=== PATIENT | male | born 1980 | race African-American/Black ===

== ENCOUNTER 2022-10-10 17:58 | Emergency (ER) | payer MEDICAID, OTHER ==
[2022-10-10 18:33] LABS: GLUCOSE, URINE (UA) NEGATIVE (NEGATIVE); KETONES,URINE (UA) 40 mg/dL (NEGATIVE); LEUKOCYTE ESTERASE, URINE NEGATIVE (NEGATIVE); NITRITE,URINE POSITIVE (NEGATIVE); OCCULT BLOOD,URINE NEGATIVE (NEGATIVE); PROTEIN,URINE 100 mg/dL (NEGATIVE); UROBILINOGEN,URINE 2 E.U./dL (NORMAL)
[2022-10-10 18:35] LABS: BILIRUBIN,URINE LARGE (NEGATIVE); CLARITY,URINE CLOUDY (CLEAR); ICTOTEST,URINE POSITIVE
[2022-10-10 18:44] LABS: AMORPHOUS SEDIMENT,UR Few /LPF; BACTERIA,URINE Moderate /HPF (None Seen); MUCUS,URINE Moderate Strands; RBC,URINE 0-5 /HPF (0-5); SQUAMOUS EPITHELIAL CELL,UR FEW Squamous (<= Few)
[2022-10-10] MEDS ORDERED: DROPERIDOL 5 MG/2 ML VIAL IVP STA (19:07)
[2022-10-10] MEDS ORDERED: SODIUM CHLORIDE 0.9% 1,000 ML IV STA (19:07)
--- NOTE | 2022-10-10 19:10 | ED Physician Documentation ---
History of Present Illness - Stated complaint Stated Complaint: BACK PX,N/V - Chief complaint Chief Complaint: Abd Pain - History obtained from History obtained from: Patient - History of Present Illness Timing: How many weeks ago (1) Pain level max: 4 Pain level now: 4 - Additonal information Additional information: Patient is a 42-year-old male who presents to the emergency department with vomiting for the past several days. He states that it is yellow in color. States he had blood once but none now. He states that he has some lower back discomfort as well. Worse with movement, better with rest. Started after the vomiting. He states he has a history of alcoholism, went to a rehab a year ago, but recently relapsed and has been vomiting since that time. His last drink was a few days ago. He states he has some mild abdominal discomfort, generalized, nothing seems to make it better or worse. Review of Systems Constitutional: denies: Fever, Chills Respiratory: denies: Cough GI: denies: Nausea, Vomiting, Diarrhea PD PAST MEDICAL HISTORY - Past Medical History Past Medical History: No - Present Medications Home Medications: Ambulatory Orders Medication Instructions Recorded Confirmed Doxycycline Monohydrate 100 mg PO BID #20 cap 10/10/22 Ondansetron Odt [Zofran] 4 mg TL Q6H PRN #10 tablet 10/10/22 - Allergies Allergies/Adverse Reactions: Allergies Allergy/AdvReac Type Severity Reaction Status Date / Time No Known Drug Allergies Allergy Verified 10/10/22 18:08 - Living Situation Living Situation: reports: With family Living Arrangement: reports: At home - Social History Does the pt drink ETOH?: Yes Does the pt have substance abuse?: Yes Substance Use and Type: Marijuana - Family History Family history: reports: Non contributory PD ED PE NORMAL - Vitals Vital signs reviewed: Yes - General General: Alert and oriented X 3, No acute distress - HEENT HEENT: PERRL, Moist mucous membranes - Neck Neck: Supple, no meningeal sign - Cardiac Cardiac: RRR, Strong equal pulses - Respiratory Respiratory: No respiratory distress, Clear bilaterally - Abdomen Abdomen: Soft, Non tender, Non distended - Back Back: No CVA TTP, No spinal TTP - Derm Derm: Warm and dry, No rash - Extremities Extremities: No edema, No calf tenderness / cord - Neuro Neuro: Alert and oriented X 3, sanitary engineer 2-12 intact, No motor deficit, No sensory deficit, Normal speech Eye Opening: Spontaneous Motor: Obeys Commands Verbal: Oriented GCS Score: 15 - Psych Psych: Normal mood, Normal affect Results - Vitals Vitals: Vital Signs - 24 hr 10/10/22 10/10/22 10/10/22 18:06 20:08 20:51 Temperature 36.4 C L Heart Rate 104 H 88 79 Respiratory 20 18 18 Rate Blood Pressure 134/82 H 115/89 H 144/101 H O2 Saturation 97 98 100 Oxygen O2 Source Room air - Labs Labs: Laboratory Tests 10/10/22 10/10/22 10/10/22 18:16 18:16 20:02 WBC 8.2 RBC 5.04 Hgb 18.3 H Hct 51.2 MCV 101.6 H MCH 36.3 H MCHC 35.7 RDW 12.5 Plt Count 379 MPV 10.1 Neut # (Auto) 6.1 Lymph # (Auto) 1.3 L Young # (Auto) 0.6 Eos # (Auto) 0.0 Baso # (Auto) 0.1 Absolute Nucleated RBC 0.00 Nucleated RBC % 0.0 Sodium Potassium Chloride Carbon Dioxide Anion Gap BUN Creatinine Estimated GFR (MDRD) Glucose Calcium Phosphorus Magnesium Total Bilirubin AST ALT Alkaline Phosphatase Total Protein Albumin Globulin Albumin/Globulin Ratio Lipase Urine Color DARK YELLOW Urine Clarity CLOUDY Urine pH 6.0 Ur Specific [place] >=1.030 H Urine Protein 100 H Urine Glucose (UA) NEGATIVE Urine Ketones 40 H Urine Occult Blood NEGATIVE Urine Nitrite POSITIVE H Urine Bilirubin LARGE H Urine Urobilinogen 2 H Ur Leukocyte Esterase NEGATIVE Urine RBC 0-5 Urine WBC 6-10 H Ur Squamous Epith Cells FEW Squamous Amorphous Sediment Few Urine Bacteria Moderate H Urine Mucus Moderate Strands Ur Microscopic Review INDICATED Urine Culture Comments INDICATED Urine Opiates Screen NEGATIVE Ur Oxycodone Screen NEGATIVE Urine Methadone Screen NEGATIVE Ur Propoxyphene Screen NEGATIVE Ur Barbiturates Screen NEGATIVE Ur Tricyclics Screen NEGATIVE Ur Phencyclidine Scrn NEGATIVE Ur Amphetamine Screen NEGATIVE U Methamphetamines Scrn NEGATIVE U Benzodiazepines Scrn NEGATIVE Urine Cocaine Screen NEGATIVE U Cannabinoids Screen POSITIVE H Ethyl Alcohol 10/10/22 20:02 WBC RBC Hgb Hct MCV MCH MCHC RDW Plt Count MPV Neut # (Auto) Lymph # (Auto) Young # (Auto) Eos # (Auto) Baso # (Auto) Absolute Nucleated RBC Nucleated RBC % Sodium 132 L Potassium 3.5 Chloride 88 L Carbon Dioxide 24 Anion Gap 20.0 H BUN 14 Creatinine 0.8 Estimated GFR (MDRD) 129 Glucose 127 H Calcium 10.6 H Phosphorus 3.8 Magnesium 1.9 Total Bilirubin 1.1 H AST 36 ALT 41 Alkaline Phosphatase 81 Total Protein 8.8 Albumin 4.9 Globulin 3.9 Albumin/Globulin Ratio 1.3 Lipase 27 Urine Color Urine Clarity Urine pH Ur Specific [place] Urine Protein Urine Glucose (UA) Urine Ketones Urine Occult Blood Urine Nitrite Urine Bilirubin Urine Urobilinogen Ur Leukocyte Esterase Urine RBC Urine WBC Ur Squamous Epith Cells Amorphous Sediment Urine Bacteria Urine Mucus Ur Microscopic Review Urine Culture Comments Urine Opiates Screen Ur Oxycodone Screen Urine Methadone Screen Ur Propoxyphene Screen Ur Barbiturates Screen Ur Tricyclics Screen Ur Phencyclidine Scrn Ur Amphetamine Screen U Methamphetamines Scrn U Benzodiazepines Scrn Urine Cocaine Screen U Cannabinoids Screen Ethyl Alcohol < 10.0 PD Medical Decision Making - ED course Complexity details: reviewed results, re-evaluated patient, considered differential, d/w patient, d/w family ED course: Patient with nausea and vomiting for the past several days. He was given IV fluids and droperidol. Nausea and vomiting resolved. Tolerating p.o. without difficulty. He does appear to have a UTI, concern for potential STD exposure, therefore we will treat him with Rocephin and placed on doxycycline. Urinalysis was sent for gonorrhea and Chlamydia testing. Counseled to follow-up with a primary care provider for further testing including HIV and AIDS. Patient does have some difficulty walking, he states that this is an ongoing for several years, usually uses a cane. He states that this is not an acute issue and does not have any acute issues with his balance. No headache. No falls. No indication for emergent neuroimaging. Patient was counseled at length regarding the need for close follow-up with her primary care provider. Patient counseled regarding signs and symptoms for which I believe and urgent re-evaluation would be necessary. Patient with good understanding of and agreement to plan and is comfortable going home at this time This document was made in part using voice recognition software. While efforts are made to proofread this document, sound alike and grammatical errors may occur. Departure - Departure Disposition: 01 Home, Self Care Clinical Impression: Dehydration Vomiting Qualifiers: Vomiting type: unspecified Nausea presence: with nausea Qualified Code(s): R11.2 - Nausea with vomiting, unspecified Urinary tract infection Qualifiers: Urinary tract infection type: acute cystitis Hematuria presence: without hematuria Qualified Code(s): N30.00 - Acute cystitis without hematuria Condition: Good Instructions: ED Dehydration, ED Nausea Vomiting Follow-Up: Your,doctor in 1 week [Other] Prescriptions: Doxycycline Monohydrate 100 mg PO BID #20 cap Ondansetron Odt [Zofran] 4 mg TL Q6H PRN #10 tablet PRN Reason: Nausea / Vomiting Comments: Your medications were sent to [email or web address] in [place]. Please take all antibiotics until gone. The Zofran will help with any nausea and vomiting. You were very dehydrated today. Please make sure you are drinking plenty of water at home. Please refrain from alcohol. I have included information about a local detox facility. Contact: [facility] [address] [place] [address] Fax: Forms: PCP List
[2022-10-10 19:23] LABS: MUDS CUTOFF CONCENTRATIONS CUTOFF CONC BELOW:
[2022-10-10 19:24] LABS: AMPHETAMINE SCREEN,URINE NEGATIVE (NEGATIVE); BARBITURATE SCREEN,UR NEGATIVE (NEGATIVE); BENZODIAZEPINES SCREEN, URINE NEGATIVE (NEGATIVE); COCAINE SCREEN URINE NEGATIVE (NEGATIVE); METHADONE SCREEN, URINE NEGATIVE (NEGATIVE); METHAMPHETAMINES SCREEN, URINE NEGATIVE (NEGATIVE); OPIATE SCREEN, URINE NEGATIVE (NEGATIVE); OXYCODONE SCREEN, URINE NEGATIVE (NEGATIVE); PROPOXYPHENE SCREEN, URINE NEGATIVE (NEGATIVE); THC CANNABINOID SCREEN, URINE POSITIVE (NEGATIVE); TRICYCLIC ANTIDEPRESSANT,URINE NEGATIVE (NEGATIVE)
[2022-10-10 20:07] LABS: BASOPHILS # (AUTO) 0.1 10^3/uL (0.0-0.1); BASOPHILS % (AUTO) 0.6 %; HCT - HEMATOCRIT 51.2 % (42.0-52.0); HGB - HEMOGLOBIN 18.3 g/dL (14.0-18.0); LYMPHOCYTES # (AUTO) 1.3 10^3/uL (1.5-3.5); LYMPHOCYTES % (AUTO) 16.2 %; MEAN CORPUSCULAR HEMOGLOBIN 36.3 pg (27.0-31.0); MEAN CORPUSCULAR HGB CONC 35.7 g/dL (32.0-36.0); MEAN CORPUSCULAR VOLUME 101.6 fL (80.0-94.0); MEAN PLATELET VOLUME 10.1 fL (7.4-11.4); MONOCYTES # (AUTO) 0.6 10^3/uL (0.0-1.0); MONOCYTES % (AUTO) 7.8 %; NEUTROPHILS # (AUTO) 6.1 10^3/uL (1.5-6.6); PLT - PLATELET COUNT 379 10^3/uL (130-450); RED BLOOD COUNT 5.04 10^6/uL (4.70-6.10); RED CELL DISTRIBUTION WIDTH 12.5 % (12.0-15.0); WHITE BLOOD COUNT 8.2 x10^3/uL (4.8-10.8)
[2022-10-10 20:24] LABS: ALBUMIN 4.9 g/dL (3.2-5.5); ETOH - ETHANOL < 10.0 mg/dL; LIPASE 27 U/L (11-82); MAGNESIUM 1.9 mg/dL (1.7-2.3); PHOSPHORUS 3.8 mg/dL (2.5-5.0)
[2022-10-10 20:29] LABS: ALBUMIN/GLOBULIN RATIO 1.3 (1.0-2.2); ALKALINE PHOSPHATASE 81 IU/L (42-121); ALT ALANINE AMINOTRANSFERASE 41 IU/L (10-60); AST ASPARTATE AMINOTRANSFERASE 36 IU/L (10-42); BILIRUBIN,TOTAL 1.1 mg/dL (0.2-1.0); BUN - BLOOD UREA NITROGEN 14 mg/dL (6-20); CALCIUM 10.6 mg/dL (8.5-10.3); CARBON DIOXIDE - CO2 24 mmol/L (21-32); CHLORIDE 88 mmol/L (101-111); CREATININE 0.8 mg/dL (0.6-1.3); GFR - MDRD 129 (>89); GLUCOSE 127 mg/dL (74-104); POTASSIUM 3.5 mmol/L (3.5-4.5); SODIUM 132 mmol/L (135-145); TOTAL PROTEIN 8.8 g/dL (6.4-8.9)
[2022-10-10 20:59] VITALS: O2SAT 100
[2022-10-10] MEDS ORDERED: cefTRIAXone 1 GM VIAL IVP STA (21:11)
[2022-10-10] MEDS ORDERED: DOXYCYCLINE 100 MG TABLET PO STA (21:12)
[2022-10-10 22:19] VITALS: BP 145/99
[2022-10-11 00:02] LABS: CHLAMYDIA TRACHOMATIS DNA NEGATIVE (NEGATIVE); NEISSERIA GONORRHOEAE DNA NEGATIVE (NEGATIVE); TRICHOMONAS VAGINALIS DNA NEGATIVE (NEGATIVE)
== END 2022-10-10 22:15 | disposition home or self-care (01) ==
LOC: ED 17:58
DX: N30.00 Acute cystitis without hematuria (principal); E86.0 Dehydration; R11.2 Nausea with vomiting, unspecified
CPT/HCPCS: 36415; 80053; 80306; 80320; 81001; 83690; 83735; 84100; 85025; 87086; 87491; 87591; 87661; 96361; 96374; 96375; 99283; A9270; 81003; 82330; 85610; 85730

== ENCOUNTER 2022-10-14 15:47 | Outpatient (CLI) | payer MEDICAID | END 2022-10-14 23:59 | disposition critical access hospital (66) | LOC: EMS 15:47 | DX: R10.84 Generalized abdominal pain (principal); K59.00 Constipation, unspecified; R39.89 Other symptoms and signs involving the genitourinary system; R20.2 Paresthesia of skin; R53.1 Weakness | CPT/HCPCS: A0425; A0429; A0999 ==

== ENCOUNTER 2022-10-14 16:13 | Emergency (ER) | payer MEDICAID ==
[2022-10-14] MEDS ORDERED: THIAMINE INJ 100 MG in SODIUM CHLORIDE 0.9% 50 ML IV STA (16:20)
[2022-10-14] MEDS ORDERED: SODIUM CHLORIDE 0.9% 1,000 ML IV STA (16:20)
--- NOTE | 2022-10-14 16:20 | ED Physician Documentation ---
PD HPI ABD PAIN - Stated complaint Stated Complaint: ETOH/ABD PX - Chief complaint Chief Complaint: Abd Pain - History obtained from History obtained from: Patient - Additional information Additional information: 42-year-old gentleman with history of alcoholism, was in rehab last year did well but started drinking again recently. He was seen by my partner 4 days ago he had pyuria with negative culture, talk screens positive for cannabis but negative for alcohol at the time. Chief complaint today is that he has not had a bowel movement in a week and has progressive diffuse weakness. He has abd ominal fullness, not pain with it. He cannot identify any particular reason that he has not had a bowel movements. He was noted to be tachycardic into the 130s for EMS with blood sugar in the 170s. PD PAST MEDICAL HISTORY - Past Surgical History Past Surgical History: No - Present Medications Home Medications: Ambulatory Orders Medication Instructions Recorded Confirmed Doxycycline Monohydrate 100 mg PO BID #20 cap 10/10/22 10/14/22 Ondansetron Odt [Zofran] 4 mg TL Q6H PRN #10 tablet 10/10/22 10/14/22 - Allergies Allergies/Adverse Reactions: Allergies Allergy/AdvReac Type Severity Reaction Status Date / Time No Known Drug Allergies Allergy Verified 10/14/22 16:19 - Social History Does the pt smoke?: Yes Smoking Status: Current every day smoker Does the pt drink ETOH?: Yes Does the pt have substance abuse?: Yes - POLST Patient has POLST: No PD ED PE NORMAL - Vitals Vital signs reviewed: Yes - General General: Alert and oriented X 3, Other (Slightly disheveled. Still wearing his hospital band from the other day.) - HEENT HEENT: PERRL, EOMI - Neck Neck: Supple, no meningeal sign, No bony TTP - Cardiac Cardiac: No murmur, Other (Tachycardic but regular) - Respiratory Respiratory: No respiratory distress, Clear bilaterally - Abdomen Abdomen: Other (Slightly distended but nontender) - Back Back: No CVA TTP, No spinal TTP - Neuro Neuro: Alert and oriented X 3, Normal speech, Other (Shaky with 4 out of 5 strength in each extremity; He has severe ataxia in all 4 extremities including truncal ataxia with titubation.) Eye Opening: Spontaneous Motor: Obeys Commands Verbal: Oriented GCS Score: 15 Results - Vitals Vitals: Vital Signs - 24 hr 10/14/22 10/14/22 10/14/22 16:16 16:30 17:00 Temperature 36.3 C L Heart Rate 127 H 119 H 105 H Respiratory 16 14 12 Rate Blood Pressure 137/123 H 140/106 H 143/115 H O2 Saturation 100 100 100 If not protocol : Oxygen Flow, liters/minute 10/14/22 10/14/22 10/14/22 17:30 18:00 19:20 Temperature Heart Rate 102 H 94 82 Respiratory 13 11 L 14 Rate Blood Pressure 160/120 H 152/107 H 133/100 H O2 Saturation 100 100 100 If not protocol : Oxygen Flow, liters/minute 10/14/22 10/14/22 10/14/22 20:26 21:30 21:39 Temperature Heart Rate 81 83 79 Respiratory 18 15 18 Rate Blood Pressure 148/114 H 134/95 H 127/89 H O2 Saturation 99 100 100 If not protocol 2 2 : Oxygen Flow, liters/minute 10/14/22 10/14/22 10/14/22 21:46 21:52 21:55 Temperature Heart Rate 82 67 82 Respiratory 16 17 18 Rate Blood Pressure 127/83 H 128/114 H O2 Saturation 100 94 If not protocol : Oxygen Flow, liters/minute 10/14/22 10/15/22 10/15/22 22:51 00:00 02:00 Temperature Heart Rate 89 86 108 H Respiratory 18 19 18 Rate Blood Pressure 160/122 H 166/102 H O2 Saturation 98 98 98 If not protocol : Oxygen Flow, liters/minute 10/15/22 10/15/22 10/15/22 03:00 04:30 06:00 Temperature Heart Rate 96 101 H 96 Respiratory 17 18 16 Rate Blood Pressure 140/110 H O2 Saturation 96 98 98 If not protocol : Oxygen Flow, liters/minute 10/15/22 10/15/22 10/15/22 07:16 09:00 10:53 Temperature 36.2 C L Heart Rate 95 111 H 101 H Respiratory 18 20 16 Rate Blood Pressure 140/110 H 152/129 H 145/112 H O2 Saturation 100 99 98 If not protocol : Oxygen Flow, liters/minute 10/15/22 10/15/22 13:00 14:45 Temperature 36.5 C Heart Rate 108 H 101 H Respiratory 18 15 Rate Blood Pressure 149/116 H 129/86 H O2 Saturation 97 99 If not protocol : Oxygen Flow, liters/minute Oxygen O2 Source Room air - Labs Labs: Microbiology 10/14/22 21:40 CSF Culture - Preliminary Cerebral Spinal Fluid Laboratory Tests 10/14/22 10/14/22 10/14/22 16:29 16:29 16:29 WBC 7.2 RBC 4.67 L Hgb 16.9 Hct 45.8 MCV 98.1 H MCH 36.2 H MCHC 36.9 H RDW 12.3 Plt Count 370 MPV 9.5 Neut # (Auto) 4.3 Lymph # (Auto) 1.9 Hendricks # (Auto) 0.8 Eos # (Auto) 0.0 Baso # (Auto) 0.1 Absolute Nucleated RBC 0.00 Nucleated RBC % 0.0 VBG pH 7.590 H VBG pCO2 27.1 L VBG pO2 42.1 VBG HCO3 25.4 VBG Total CO2 26.2 VBG O2 Saturation 84.2 H VBG Base Excess 5.2 H Sodium 129 L Potassium 3.1 L Chloride 90 L Carbon Dioxide 22 Anion Gap 17.0 H BUN 13 Creatinine 0.9 Estimated GFR (MDRD) 113 Glucose 128 H Calcium 10.3 Phosphorus 1.9 L Magnesium 1.5 L Total Bilirubin 1.0 AST 47 H ALT 57 Alkaline Phosphatase 74 Ammonia Total Protein 7.6 Albumin 4.3 Globulin 3.3 Albumin/Globulin Ratio 1.3 Lipase 46 CSF Color CSF Clarity Xanthrochromic CSF WBC CSF RBC CSF Cell Count Tube # CSF Glucose CSF Total Protein Ethyl Alcohol < 10.0 SARS-CoV-2 (PCR) 10/14/22 10/14/22 10/14/22 16:29 21:40 23:45 WBC RBC Hgb Hct MCV MCH MCHC RDW Plt Count MPV Neut # (Auto) Lymph # (Auto) Hendricks # (Auto) Eos # (Auto) Baso # (Auto) Absolute Nucleated RBC Nucleated RBC % VBG pH VBG pCO2 VBG pO2 VBG HCO3 VBG Total CO2 VBG O2 Saturation VBG Base Excess Sodium Potassium Chloride Carbon Dioxide Anion Gap BUN Creatinine Estimated GFR (MDRD) Glucose Calcium Phosphorus Magnesium Total Bilirubin AST ALT Alkaline Phosphatase Ammonia 39.1 Total Protein Albumin Globulin Albumin/Globulin Ratio Lipase CSF Color COLORLESS CSF Clarity CLEAR Xanthrochromic ABSENT CSF WBC 0 CSF RBC 1 CSF Cell Count Tube # CSF TUBE# 3 CSF Glucose 62 CSF Total Protein 115 H Ethyl Alcohol SARS-CoV-2 (PCR) NOT DETECTED 10/15/22 12:35 WBC RBC Hgb Hct MCV MCH MCHC RDW Plt Count MPV Neut # (Auto) Lymph # (Auto) Hendricks # (Auto) Eos # (Auto) Baso # (Auto) Absolute Nucleated RBC Nucleated RBC % VBG pH VBG pCO2 VBG pO2 VBG HCO3 VBG Total CO2 VBG O2 Saturation VBG Base Excess Sodium 133 L Potassium 3.6 Chloride 97 L Carbon Dioxide 26 Anion Gap 10.0 BUN 9 Creatinine 0.7 Estimated GFR (MDRD) 151 Glucose 136 H Calcium 9.7 Phosphorus 4.4 Magnesium 1.8 Total Bilirubin 0.7 AST 38 ALT 48 Alkaline Phosphatase 66 Ammonia Total Protein 6.8 Albumin 4.0 Globulin 2.8 Albumin/Globulin Ratio 1.4 Lipase CSF Color CSF Clarity Xanthrochromic CSF WBC CSF RBC CSF Cell Count Tube # CSF Glucose CSF Total Protein Ethyl Alcohol SARS-CoV-2 (PCR) Procedures - Lumbar Puncture - Major Position: Laying left side Location: L3-L4 Anesthesia: Local lidocaine CSF: Clear Other: Sterile prep and drape, Patient tolerated well - Procedural sedation Sedation prep: Informed consent, Time out completed, Last meal (12p), ASA 1 - healthy, IV O2 monitor, ET CO2 monitor, RT present Sedation Medications: propofol (Divided doses totaling 200 mg) Mallampati classification: I Patient status during sedation: Unresponsive Sedation recovery: Recovered uneventfully Time in sedation (Minutes): 18 PD Medical Decision Making - ED course ED course: 42-year-old gentleman with history of alcohol abuse presents with weakness, inability to walk, and abdominal fullness associated with constipation in the setting of no abdominal tenderness. As far as the weakness goes it actually seems more like severe ataxia which is concerning because he is not drunk and not altered. It is symmetric and he has truncal ataxia as well concerning for cerebellar verbal damage related to chronic alcoholism. His electrolyte abnormalities were addressed with IV fluids, IV potassium, IV magnesium, and oral K-Phos. His ammonia level is normal. Head CT did not show anything but it would have low sensitivity for causes of ataxia. His examination did not improve with repletion of his electrolytes. He was given laxatives but frankly the constipation should be secondary issue compared to the inability to walk related to his ataxia. He was notified about the incidental liver lesion which can be followed as an outpatient. I discussed the case by phone with Dr. Rambo James at [facility] who recommended a spinal tap to rule out Guillain-Maddox. If normal recommends admission for MRI of the brain and entire spine. This was discussed with the patient who became slightly agitated and wanted to go home, however we had tried to get him up to walking with a walker and his ataxia was so bad that he could not even take 1 step unassisted. He would only submit to spinal tap with sedation. Subsequently was sedated with propofol for a lumbar puncture which went well. Care to Dr. De León on the overnight shift pending CSF results and disposition based on that. Departure - Departure Disposition: 02 Transfer Acute Care Hosp Clinical Impression: Ataxia, Unable to ambulate, Cerebrospinal fluid protein elevation Constipation Qualifiers: Constipation type: unspecified constipation type Qualified Code(s): K59.00 - Constipation, unspecified Condition: Serious Comments: CT did show an incidental small, very small lesion in your liver. Talk with your primary care physician about a nonemergent ultrasound for this. Forms: PCP List Discharge Date/Time: 10/15/22 14:45
[2022-10-14 16:35] LABS: BASOPHILS # (AUTO) 0.1 10^3/uL (0.0-0.1); EOSINOPHILS % (AUTO) 0.4 %; HCT - HEMATOCRIT 45.8 % (42.0-52.0); HGB - HEMOGLOBIN 16.9 g/dL (14.0-18.0); LYMPHOCYTES # (AUTO) 1.9 10^3/uL (1.5-3.5); LYMPHOCYTES % (AUTO) 26.8 %; MEAN CORPUSCULAR HEMOGLOBIN 36.2 pg (27.0-31.0); MEAN CORPUSCULAR HGB CONC 36.9 g/dL (32.0-36.0); MEAN CORPUSCULAR VOLUME 98.1 fL (80.0-94.0); MEAN PLATELET VOLUME 9.5 fL (7.4-11.4); MONOCYTES # (AUTO) 0.8 10^3/uL (0.0-1.0); MONOCYTES % (AUTO) 11.1 %; NEUTROPHILS # (AUTO) 4.3 10^3/uL (1.5-6.6); PLT - PLATELET COUNT 370 10^3/uL (130-450); RED BLOOD COUNT 4.67 10^6/uL (4.70-6.10); RED CELL DISTRIBUTION WIDTH 12.3 % (12.0-15.0); WHITE BLOOD COUNT 7.2 x10^3/uL (4.8-10.8)
[2022-10-14 16:40] LABS: VBG PCO2 27.1 mmHg (41-51); VBG PH 7.59 (7.31-7.41)
[2022-10-14 16:41] LABS: VBG BASE EXCESS 5.2 mmol/L (-2 - +2); VBG HCO3 25.4 mmol/L (23-28); VBG OXYGEN SATURATION 84.2 % (60-80); VBG PO2 42.1 mmHg (25-47); VBG TOTAL CO2 26.2 mmol/L (24-29)
[2022-10-14 16:52] LABS: ALBUMIN 4.3 g/dL (3.2-5.5); ETOH - ETHANOL < 10.0 mg/dL; LIPASE 46 U/L (11-82); MAGNESIUM 1.5 mg/dL (1.7-2.3); PHOSPHORUS 1.9 mg/dL (2.5-5.0)
[2022-10-14] MEDS ORDERED: MAGNESIUM SULFATE 2 GRAM 2 GM/50 ML BAG IV ONE (16:54)
[2022-10-14] MEDS ORDERED: NEUTRA-PHOS 250 MG TABLET PO STA (16:54)
[2022-10-14 16:59] LABS: ALBUMIN/GLOBULIN RATIO 1.3 (1.0-2.2); ALKALINE PHOSPHATASE 74 IU/L (42-121); ALT ALANINE AMINOTRANSFERASE 57 IU/L (10-60); AST ASPARTATE AMINOTRANSFERASE 47 IU/L (10-42); BUN - BLOOD UREA NITROGEN 13 mg/dL (6-20); CALCIUM 10.3 mg/dL (8.5-10.3); CARBON DIOXIDE - CO2 22 mmol/L (21-32); CHLORIDE 90 mmol/L (101-111); CREATININE 0.9 mg/dL (0.6-1.3); GFR - MDRD 113 (>89); GLUCOSE 128 mg/dL (74-104); POTASSIUM 3.1 mmol/L (3.5-4.5); SODIUM 129 mmol/L (135-145); TOTAL PROTEIN 7.6 g/dL (6.4-8.9)
[2022-10-14] MEDS ORDERED: POTASSIUM CHLOR 10 MEQ/100 ML 10 MEQ/100 ML BAG IV STA (17:03)
[2022-10-14] MEDS ORDERED: bisacodyL 5 MG TABLET PO STA (18:25)
[2022-10-14] MEDS ORDERED: polyethylene glycoL 3350 17 GM PACKET PO STA (18:25)
--- NOTE | 2022-10-14 19:10 | CT Report ---
PROCEDURE: ABDOMEN/PELVIS W INDICATIONS: iv only abd pain CONTRAST: Opti 240 TECHNIQUE: After the administration of intravenous contrast, 5 mm thick sections acquired from the diaphragms to the symphysis. 5 mm thick coronal and sagittal reformats were acquired. For radiation dose reducti on, the following was used: automated exposure control, adjustment of mA and/or kV according to maulik ent size. COMPARISON: None FINDINGS: Image quality: Suboptimal evaluation due to motion artifact. Lung bases and heart: Unremarkable. Liver: 1.1 cm lesion at the liver dome with indeterminate attenuation (series 2, image 12). Gallbladder and biliary tree: Spleen: No splenomegaly. Pancreas: No pancreatic ductal dilation. Adrenals: No adrenal nodule. Kidneys and ureters: No hydronephrosis. No renal cystic lesion which requires follow up. No solid mas s. Bowel and peritoneum: No bowel distension. No pathologic free fluid. Fecal debris within the small dalila wel. Moderate gas and stool load within the large bowel. Lymph nodes: No central or retroperitoneal adenopathy. Vessels: No infrarenal aortic aneurysm. PELVIS Reproductive organs: Unremarkable. Bladder: No abnormal wall thickening, accounting for underdistension. Pelvic lymph nodes: No pelvic adenopathy by size criteria. Bones: No aggressive osseous abnormality. Other: No significant ventral or inguinal hernia. IMPRESSION: Moderate gas and stool load within the large bowel. Fecal debris within the small bowel, which may indicate small intestinal bacterial overgrowth versus slow intestinal transit. 1.1 cm liver lesion at the dome, with indeterminate attenuation. [facility] Reviewed by: Meng Dailey on 10/14/2022 7:09 PM PDT Approved by: Meng Dailey on 10/14/2022 7:09 PM PDT Station ID: [id number]
--- NOTE | 2022-10-14 19:16 | CT Report ---
PROCEDURE: HEAD WO INDICATIONS: weakness TECHNIQUE: Noncontrast 4.5 mm thick angled axial sections acquired from the foramen magnum to the vertex. For r adiation dose reduction, the following was used: automated exposure control, adjustment of mA and/or kV according to patient size. COMPARISON: None. FINDINGS: Image quality: Excellent. CSF spaces: Basal cisterns are patent. No extra-axial fluid collections. Ventricles are normal in size and shape. Brain: No midline shift. No intracranial masses or hemorrhage. Edmond-white matter interface is norm al. Skull and face: Calvarium and visualized facial bones are intact, without suspicious lesions. Sinuses: Visualized sinuses and mastoids are clear. IMPRESSION: No acute intracranial pathology. Reviewed by: Meng Dailey on 10/14/2022 7:14 PM PDT Approved by: Meng Dailey on 10/14/2022 7:14 PM PDT Station ID: [id number]
[2022-10-14] MEDS ORDERED: LACTATED RINGERS 1,000 ML IV STA (19:44)
[2022-10-14] MEDS ORDERED: LACTULOSE 10 GM /15 ML UDC PO STA (19:44)
[2022-10-14] MEDS ORDERED: PROPOFOL 200 MG/20 ML VIAL IVP STA (21:17)
[2022-10-14] MEDS ORDERED: IOVERSOL 320 100 ML VIAL IVP ONE (21:57)
[2022-10-14 22:08] LABS: CLARITY,CSF CLEAR (CLEAR); COLOR,CSF COLORLESS (COLORLESS); CSF TUBE # CSF TUBE# 3; CSF XANTHOCHROMIA ABSENT (ABSENT); RED BLOOD CELL,CSF 1 /mm^3 (0-1); WHITE BLOOD CELL,CSF 0 /mm^3 (0-5)
[2022-10-14 22:14] LABS: CSF - GLUCOSE 62 mg/dL (45-70); TOTAL PROTEIN,CSF 115 mg/dL (15-45)
[2022-10-14] MEDS ORDERED: LORazepam 1 MG TABLET PO STA (22:31)
--- NOTE | 2022-10-15 00:26 | ED Physician Documentation ---
ED Addendum - Addendum Addendum: 10/15/22 00:25 Patient endorsed to me by Dr. 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 Plan to transfer to neuro capable facility that can do plasmapheresis and IVIG. We are in correspondence with [facility]. d/w Dr. Zavaleta at [facility] who suggested trial of high dose steroids if high suspicion for CIDP. Plan to speak with [facility] hospitalist. no beds available but patient may go on waitlist. Disposition transfer Condition serious Impression 1 ataxia 2 inability to ambulate 3 elevated CSF protein 10/15/22 01:39 10/15/22 02:43 d/w Dr Liz use, [facility] accepting physician.
[2022-10-15] MEDS ORDERED: predniSONE 20 MG TABLET PO STA (01:42)
[2022-10-15] MEDS ORDERED: ONDANSETRON 4 MG/2 ML VIAL IVP PRN (10:57)
--- NOTE | 2022-10-15 12:09 | ED Physician Documentation ---
ED Addendum - Addendum Addendum: 10/15/22 12:08 Took call at the beginning of my shift from mom. I had tried to call her earlier but noted that her phone was not working. She will try to get it fixed because we cannot call her. Discussed running diagnosis and that he has been accepted at [facility] but we are pending a bed as there is no availability right now. I did order repeat labs. 10/15/22 13:43 Has been accepted to [facility] as a bed has become available and Dr. Ashley filled out the cobras. Disposition: Transfer to tertiary care hospital Condition: Stable
[2022-10-15 12:54] LABS: ALBUMIN/GLOBULIN RATIO 1.4 (1.0-2.2); BILIRUBIN,TOTAL 0.7 mg/dL (0.2-1.0); CALCIUM 9.7 mg/dL (8.5-10.3); CREATININE 0.7 mg/dL (0.6-1.3); MAGNESIUM 1.8 mg/dL (1.7-2.3); PHOSPHORUS 4.4 mg/dL (2.5-5.0); POTASSIUM 3.6 mmol/L (3.5-4.5); TOTAL PROTEIN 6.8 g/dL (6.4-8.9)
[2022-10-15 15:06] VITALS: BP 129/86; O2SAT 99
[2022-10-16] MEDS ORDERED: predniSONE 20 MG TABLET PO SCH (07:00)
== END 2022-10-15 14:45 | disposition short-term general hospital (02) ==
LOC: ED 16:13
DX: R27.0 Ataxia, unspecified (principal); K59.00 Constipation, unspecified; R83.8 Other abnormal findings in cerebrospinal fluid; Z20.822 Contact with and (suspected) exposure to COVID-19
CPT/HCPCS: 36415; 62270; 70450; 74177; 80053; 80320; 82140; 82803; 82945; 83690; 83735; 84100; 84157; 85025; 87070; 87205; 87635; 89051; 96365; 96366; 96367; 96368; 96375; 99152; 99285; A9270; J3411; J7040; J7120; J7512; J8499; Q9967; 94770

== ENCOUNTER 2022-10-15 14:42 | Outpatient (CLI) | payer MEDICAID | END 2022-10-15 14:43 | disposition short-term general hospital (02) | LOC: EMS 14:42 | PROVIDERS: ATTEND Emergency Medicine | DX: R27.0 Ataxia, unspecified (principal); K59.00 Constipation, unspecified; Z74.01 Bed confinement status | CPT/HCPCS: A0425; A0428 ==

== ENCOUNTER 2023-04-07 09:20 | Outpatient (CLI) | payer MEDICAID ==
[2023-04-07 09:44] LABS: BASOPHILS % (AUTO) 0.5 %; EOSINOPHILS % (AUTO) 0.3 %; HGB - HEMOGLOBIN 12.9 g/dL (14.0-18.0); LYMPHOCYTES # (AUTO) 1.5 10^3/uL (1.5-3.5); LYMPHOCYTES % (AUTO) 37.8 %; MEAN CORPUSCULAR HEMOGLOBIN 32.6 pg (27.0-31.0); MEAN CORPUSCULAR HGB CONC 33.1 g/dL (32.0-36.0); MEAN CORPUSCULAR VOLUME 98.5 fL (80.0-94.0); MONOCYTES # (AUTO) 0.5 10^3/uL (0.0-1.0); MONOCYTES % (AUTO) 11.7 %; NEUTROPHILS # (AUTO) 1.9 10^3/uL (1.5-6.6); NEUTROPHILS % (AUTO) 49.7 %; PLT - PLATELET COUNT 235 10^3/uL (130-450); RED BLOOD COUNT 3.96 10^6/uL (4.70-6.10); RED CELL DISTRIBUTION WIDTH 14.4 % (12.0-15.0); WHITE BLOOD COUNT 3.8 x10^3/uL (4.8-10.8)
[2023-04-07 09:58] LABS: ALBUMIN 4.4 g/dL (3.2-5.5); ALBUMIN/GLOBULIN RATIO 1.4 (1.0-2.2); ALKALINE PHOSPHATASE 79 IU/L (42-121); ALT ALANINE AMINOTRANSFERASE 68 IU/L (10-60); AST ASPARTATE AMINOTRANSFERASE 70 IU/L (10-42); BILIRUBIN,TOTAL 2.7 mg/dL (0.2-1.0); BUN - BLOOD UREA NITROGEN 6 mg/dL (6-20); CALCIUM 9.8 mg/dL (8.5-10.3); CARBON DIOXIDE - CO2 28 mmol/L (21-32); CHLORIDE 96 mmol/L (101-111); CHOL/HDL RATIO 1.9 (<5.0); CHOLESTEROL 167 mg/dL; CREATININE 0.7 mg/dL (0.6-1.3); GFR - MDRD 151 (>89); GLUCOSE 79 mg/dL (74-104); HDL CHOLESTEROL 90 mg/dL; LDL CHOLESTEROL,CALCULATED 49 mg/dL; LDL/HDL RATIO 0.5 (<3.6); POTASSIUM 3.6 mmol/L (3.5-4.5); SODIUM 137 mmol/L (135-145); TOTAL PROTEIN 7.6 g/dL (6.4-8.9); TRIGLYCERIDES 139 mg/dL (48-352); VLDL CHOLESTEROL 28 mg/dL
[2023-04-07 10:14] LABS: THYROID STIMULATING HORMONE 3.71 uIU/mL (0.34-5.60)
== END 2023-04-07 09:21 | disposition home or self-care (01) ==
LOC: LAB 09:20
PROVIDERS: ATTEND Physician Assistant
DX: I10 Essential (primary) hypertension (principal); G62.9 Polyneuropathy, unspecified
CPT/HCPCS: 36415; 80053; 80061; 82607; 82746; 83721; 84443; 85025